=== PATIENT | male | born 1990 | race Caucasian/White ===

== ENCOUNTER 2020-03-21 20:28 | Emergency (ER) | payer SELFPAY ==
[2020-03-21 20:59] VITALS: BP 118/67; PULSE 76; TEMP 98.3; BMI 19.4
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
[2020-03-21 22:22] LABS: BASO % 0.6 % (0-2.0); EOS % 0.9 % (0-4.5); HEMATOCRIT 40.3 % (35.4-49); HEMOGLOBIN 13.2 GM/dL (11.7-16.9); LYMPH % 25.7 % (8-40); MCH 28.6 pg (25.7-33.7); MCHC 32.8 g/dl (32.0-35.9); MEAN CELL VOLUME 87.1 fl (80-96); MEAN PLT VOLUME 9.1 fl (7.5-11.1); MONO % 9.6 % (3.8-10.2); NEUT % 63.2 % (42.8-82.8); RBC 4.63 M/mm3 (4.00-5.60); RDW 13.4 % (11.9-15.9); WHITE BLOOD COUNT 7.7 K/mm3 (4.0-10.0)
[2020-03-21] MEDS ORDERED: LIDOCAINE VISCOUS 2% ORAL/TOP 20 ML UNIT-DOSE CUP MM ONE (22:44)
[2020-03-21] MEDS ORDERED: MAG HYDROX/AL HYDROX/SIMETH 30 ML UNIT-DOSE CUP PO ONE (22:44)
--- NOTE | 2020-03-21 22:44 | PDOC ---
Documentation entered by Claudio De La Vega SCRIBE, acting as scribe for Cesar Correia MD. Cesar Correia MD: This documentation has been prepared by the Yolette vega Xhesika, SCRIBE, under my direction and personally reviewed by me in its entirety. I confirm that the documentation accurately reflects all work, treatment, procedures, and medical decision making performed by me. Attending Attestation - Resident Resident Name: [email or web address] - ED Attending Attestation I have performed the following: I have examined & evaluated the patient, The case was reviewed & discussed with the resident, I agree w/resident's findings & plan, Exceptions are as noted - HPI HPI: 03/21/20 22:23 The patient is a 29y/o M with a PMH of Covid (4 months ago) and GERD who presents with 3+ weeks of chest pressure. Pt states his CP is substernal, non- radiating. Pt also reports 2 months of intermittent sore throat and pain with swallowing, progressively worsening. Pt states he saw his PCP in [place] one month ago and was prescribed omeprazole and famotidine (which he has been taking regularly). The patient denies headache and dizziness. Denies fever, chills, cough, nausea, vomiting, diarrhea and constipation. Denies URI symptoms. Allergies: Per Nursing Records - Physicial Exam PE: 03/21/20 23:10 See resident exam - Medical Decision Making 03/21/20 23:10 29 M with epigastric/chest pain. SUspect GERD. EKG without evidence of ischemia or pericarditis. - Labs, trop - CXR - GI cocktail 03/21/20 23:14 Labs wnl CXR clear Will DC with GI and PMD f/u Pt is well appearing, with normal vitals. Clinically stable for DC at this time. I discussed the physical exam findings, ancillary test results and final diagnoses with the patient. I answered all of the patient's questions. The patient was satisfied with the care received and felt comfortable with the discharge plan and treatment plan. The patient agrees to follow up with the primary care physician within 24-72 hours. Discharge - Discharge Information Problems reviewed: Yes Clinical Impression/Diagnosis: Chest pressure, Palpitations, Epigastric pain Condition: Fair Disposition: HOME - Follow up/Referral Referrals: [facility] [place] [facility] [place] [Provider Group] Bakari Florentino DO [Staff Physician] - - Patient Discharge Instructions Additional Instructions: You were seen in the ER for chest pressure palpitations, sore throat, and weight loss. We did a physical exam, labs, EKG (electrical test of your heart), and a chest x-ray, which did not show any emergent problems. We gave you a referral from a primary care doctor and a translator and interpreter, who you should see within one week. Please return to the ER for continued or worsening symptoms, blood in your vomit or stool, or any other reason. Lo vieron en la tod de emergencias por palpitaciones por presin en el pecho, dolor de garganta y prdida de peso. Hicimos un examen fsico, anlisis de laboratorio, ECG (prueba elctrica de [place] corazn) y luh radiografa de trax, que no mostr ningn problema emergente. Le dimos luh remisin de un mdico de atencin primaria y un gastroenterlogo, a quienes debe consultar en el plazo de luh semana. Regrese a la tod de emergencias si los sntomas continan o empeoran, hay stewart en el vmito o las heces, o por cualquier otra razn. - Post Discharge Activity
[2020-03-21 22:49] LABS: ALK PHOS 78 U/L (45-117); ANION GAP 5 MMOL/L (8-16); BILIRUBIN,TOTAL 0.3 mg/dL (0.2-1); BLOOD UREA NITROGEN 13.1 mg/dL (7-18); CALCIUM 8.8 mg/dL (8.5-10.1); CHLORIDE 106 mmol/L (98-107); CO2 29 mmol/L (21-32); CREATININE 0.8 mg/dL (0.55-1.3); GLUCOSE,RANDOM 92 mg/dL (74-106); SGOT/AST 17 U/L (15-37); SGPT/ALT 29 U/L (13-61); SODIUM 140 mmol/L (136-145); TOT PROT 7.1 g/dl (6.4-8.2)
--- NOTE | 2020-03-22 10:48 | EKG ---
Test Reason : Blood Pressure : / mmHG Vent. Rate : 060 BPM Atrial Rate : 060 BPM P-R Int : 122 ms QRS Dur : 102 ms QT Int : 378 ms P-R-T Axes : -24 090 066 degrees QTc Int : 378 ms NORMAL SINUS RHYTHM RIGHTWARD AXIS INCOMPLETE RBBB NO PREVIOUS ECGS AVAILABLE Confirmed by ROBIN HERRERA MD ([id number]) on 03/22/2020 10:48:07 AM Referred By: Confirmed By:ROBIN HERRERA MD
== END 2020-03-21 23:30 | disposition home or self-care (01) ==
LOC: JER 20:28
DX: R07.89 Other chest pain (principal); R00.2 Palpitations
CPT/HCPCS: 36415; 71046-TC-FY; 80053; 82550; 84443; 84484; 85025; 93005; 93010; 99285-25

== ENCOUNTER 2020-05-24 17:51 | Emergency (ER) | payer OTHER ==
[2020-05-24 18:24] VITALS: BP 141/82; BMI 22.1
[2020-05-24] MEDS ORDERED: ALBUTEROL SO4 2.5/IPRATROPIUM 0.5 INH SOL 3 ML VIAL.NEB. NEB ONE ×2 (18:51→19:25)
[2020-05-24 19:34] LABS: EOS % 0.5 % (0-4.5); HEMATOCRIT 44.2 % (35.4-49); HEMOGLOBIN 15.3 GM/dL (11.7-16.9); LYMPH % 20.9 % (8-40); MCH 30.1 pg (25.7-33.7); MCHC 34.7 g/dl (32.0-35.9); MEAN CELL VOLUME 86.8 fl (80-96); MEAN PLT VOLUME 8.6 fl (7.5-11.1); MONO % 11.8 % (3.8-10.2); NEUT % 65.8 % (42.8-82.8); PLATELET COUNT 197 K/MM3 (134-434); RBC 5.09 M/mm3 (4.00-5.60); RDW 12.9 % (11.9-15.9); WHITE BLOOD COUNT 5.6 K/mm3 (4.0-10.0)
[2020-05-24 20:52] LABS: CHLORIDE 106 mmol/L (98-107); POTASSIUM 3.7 mmol/L (3.5-5.1); SODIUM 141 mmol/L (136-145)
[2020-05-24 20:54] LABS: ALBUMIN 4.4 g/dl (3.4-5.0); ANION GAP 7 MMOL/L (8-16); CALCIUM 9.5 mg/dL (8.5-10.1); CO2 29 mmol/L (21-32); GLUCOSE,RANDOM 99 mg/dL (74-106)
[2020-05-24 20:55] LABS: BLOOD UREA NITROGEN 11.8 mg/dL (7-18)
[2020-05-24 20:57] LABS: CREATININE 1.1 mg/dL (0.55-1.3); SGPT/ALT 51 U/L (13-61)
[2020-05-24 20:58] LABS: SGOT/AST 26 U/L (15-37)
[2020-05-24 20:59] LABS: BILIRUBIN,TOTAL 0.3 mg/dL (0.2-1)
[2020-05-24 21:00] LABS: ALK PHOS 97 U/L (45-117)
[2020-05-24 21:43] VITALS: PULSE 98
== END 2020-05-24 21:45 | disposition home or self-care (01) ==
LOC: JER 17:51
PROC: 3E0F7GC Introduction of Other Therapeutic Substance into Respiratory Tract, Via Natural or Artificial Opening (ICD-10-PCS; principal; 2020-05-24)
DX: R06.02 Shortness of breath (principal)
CPT/HCPCS: 36415; 71046-TC-FY; 80053; 84484; 85025; 85379; 93005; 93010; 99285-25

== ENCOUNTER 2020-07-26 13:30 | Emergency (ER) | payer OTHER ==
[2020-07-26 13:40] VITALS: BP 129/72; PULSE 80; TEMP 98.2; BMI 21.7
== END 2020-07-26 15:02 | disposition home or self-care (01) ==
LOC: JER 13:30
DX: R53.1 Weakness (principal); Z11.52 Encounter for screening for COVID-19
CPT/HCPCS: 71046-TC-FY; 99284-25; C9803; U0003

== ENCOUNTER 2020-08-08 18:36 | Observation (INO) | payer OTHER ==
[2020-08-08 18:59] VITALS: BMI 21.7
[2020-08-08] MEDS ORDERED: LACTATED RINGERS SOLUTION 1000 ML INFUS.BAG IV ONE (19:59)
[2020-08-08 21:07] LABS: VENOUS BASE EXCESS 0.1 mmol/L (-2-2); VENOUS O2 SATURATION 98.3 % (70-80); VENOUS PCO2 34.6 mmHg (38-52); VENOUS PH 7.449 (7.310-7.410)
[2020-08-08 21:09] LABS: BASO % 0.2 % (0-2.0); HEMATOCRIT 45.1 % (35.4-49); HEMOGLOBIN 15.5 GM/dL (11.7-16.9); LYMPH % 3.6 % (8-40); MCH 29.8 pg (25.7-33.7); MCHC 34.5 g/dl (32.0-35.9); MEAN CELL VOLUME 86.6 fl (80-96); MEAN PLT VOLUME 8.8 fl (7.5-11.1); MONO % 0.8 % (3.8-10.2); NEUT % 95.4 % (42.8-82.8); PLATELET COUNT 210 K/MM3 (134-434); RBC 5.21 M/mm3 (4.00-5.60); RDW 13.1 % (11.9-15.9); WHITE BLOOD COUNT 14.6 K/mm3 (4.0-10.0)
[2020-08-08 21:32] LABS: CHLORIDE 108 mmol/L (98-107); POTASSIUM 3.6 mmol/L (3.5-5.1); SODIUM 139 mmol/L (136-145)
[2020-08-08 21:34] LABS: ALBUMIN 4.8 g/dl (3.4-5.0); CALCIUM 9.8 mg/dL (8.5-10.1)
[2020-08-08 21:35] LABS: ANION GAP 7 MMOL/L (8-16); BLOOD UREA NITROGEN 8.7 mg/dL (7-18); CO2 25 mmol/L (21-32); GLUCOSE,RANDOM 122 mg/dL (74-106)
[2020-08-08 21:37] LABS: SGPT/ALT 44 U/L (13-61)
[2020-08-08 21:38] LABS: CREATININE 0.8 mg/dL (0.55-1.3); SGOT/AST 23 U/L (15-37)
[2020-08-08 21:39] LABS: BILIRUBIN,TOTAL 0.5 mg/dL (0.2-1); TOT PROT 8.3 g/dl (6.4-8.2)
[2020-08-08 21:40] LABS: ALK PHOS 102 U/L (45-117)
[2020-08-08 22:07] LABS: ANISOCYTOSIS 0; MACROCYTOSIS 0; PLATELET ESTIMATE NORMAL
[2020-08-08] MEDS ORDERED: ASPIRIN 81 MG CHEWABLE TABLETS PO ONE (23:42)
[2020-08-09] MEDS ORDERED: ASPIRIN 81 MG CHEWABLE TABLETS ONE (00:22)
[2020-08-09 04:39] LABS: PH,URINE >= 9.0 (5.0-8.0); URINE APPEARANCE CLEAR; URINE BILIRUBIN NEGATIVE (NEGATIVE); URINE COLOR YELLOW; URINE GLUCOSE (UA) NEGATIVE (NEGATIVE); URINE KETONE TRACE (NEGATIVE); URINE LEUK ESTERASE NEGATIVE (NEGATIVE); URINE NITRITE NEGATIVE (NEGATIVE); URINE PROTEIN NEGATIVE (NEGATIVE); URINE UROBILINOGEN 0.2 mg/dL (0.2-1.0)
[2020-08-09 04:47] LABS: COCAINE, UR NEGATIVE ng/ml (CUTOFF=300); OPIATES, URI NEGATIVE ng/ml (CUTOFF=300); URINE BARBITURATES NEGATIVE ng/ml (CUTOFF=200)
[2020-08-09 04:48] LABS: PHENCYCLIDINE,URINE NEGATIVE ng/ml (CUTOFF=25)
[2020-08-09 05:18] LABS: METHADONE, UR NEGATIVE ng/ml (CUTOFF=300); URINE AMPHETAMINES NEGATIVE ng/ml (CUTOFF=500); URINE BENZODIAZEPINES NEGATIVE ng/ml (CUTOFF=200)
[2020-08-09] MEDS ORDERED: ENOXAPARIN NA (PORCINE) 40 MG/0.4 ML DISP.SYRIN SQ ONE (09:07)
[2020-08-09] MEDS: ENOXAPARIN NA (PORCINE) 40 MG/0.4 ML DISP.SYRIN SQ SCH (09:12)
[2020-08-09 14:50] LABS: IRON SERUM 76 ug/dL (50-175)
[2020-08-09 14:51] LABS: TOTAL IRON BINDING CAPACITY 305 ug/dL (250-450)
[2020-08-10 06:34] LABS: HEMOGLOBIN 14.4 GM/dL (11.7-16.9); MCH 30.4 pg (25.7-33.7); MCHC 35.2 g/dl (32.0-35.9); MEAN CELL VOLUME 86.4 fl (80-96); MEAN PLT VOLUME 8.6 fl (7.5-11.1); PLATELET COUNT 193 K/MM3 (134-434); RBC 4.74 M/mm3 (4.00-5.60); RDW 12.6 % (11.9-15.9); WHITE BLOOD COUNT 7.9 K/mm3 (4.0-10.0)
[2020-08-10 06:48] LABS: POTASSIUM 3.8 mmol/L (3.5-5.1)
[2020-08-10 06:56] LABS: BLOOD UREA NITROGEN 15.9 mg/dL (7-18); CALCIUM 9.6 mg/dL (8.5-10.1)
[2020-08-10 07:00] LABS: CREATININE 0.8 mg/dL (0.55-1.3)
[2020-08-10] MEDS: ENOXAPARIN NA (PORCINE) 40 MG/0.4 ML DISP.SYRIN SQ SCH (10:34)
[2020-08-10] MEDS ORDERED: ENOXAPARIN NA (PORCINE) 40 MG/0.4 ML DISP.SYRIN SQ ONE (10:41)
[2020-08-10 15:00] VITALS: BP 124/74; PULSE 72; TEMP 98.3
== END 2020-08-10 14:35 | disposition home or self-care (01) ==
LOC: JER 18:36 → JERBED 23:42
PROVIDERS: ADMIT Hospitalist; ATTEND Nurse Practitioner Family
PROC: 3E0234Z Introduction of Serum, Toxoid and Vaccine into Muscle, Percutaneous Approach (ICD-10-PCS; principal; 2020-08-08)
PROC: 3E0337Z Introduction of Electrolytic and Water Balance Substance into Peripheral Vein, Percutaneous Approach (ICD-10-PCS; 2020-08-08)
DX: R00.2 Palpitations (principal); Z86.16 Personal history of COVID-19; F41.8 Other specified anxiety disorders; K21.9 Gastro-esophageal reflux disease without esophagitis; N52.9 Male erectile dysfunction, unspecified; R53.83 Other fatigue; D72.829 Elevated white blood cell count, unspecified; R00.0 Tachycardia, unspecified; Z87.828 Personal history of other (healed) physical injury and trauma; R19.7 Diarrhea, unspecified; Z29.9 Encounter for prophylactic measures, unspecified; R06.00 Dyspnea, unspecified; Z86.19 Personal history of other infectious and parasitic diseases
CPT/HCPCS: 36415; 71045-TC-FY; 71250-TC; 74230-TC-FY; 80048; 80053; 80307; 81003; 82010; 82533; 82550; 82553; 82607; 82728; 82746; 82803; 83540; 83550; 84443; 84484; 85025; 85027; 85379; 87086; 92611-GN; 93005; 93010; 93306-TC; 96360; 99285-25; C9803; G0378; U0003